=== PATIENT | female | born 1950 | race Caucasian/White ===

== ENCOUNTER 2022-09-24 21:11 | Inpatient (IN) | payer MEDICARE, OTHER ==
[~2022-09-24] VITALS: Ht 175.3 cm; Wt 70.0 kg
[2022-09-24 22:14] LABS: BASO% 0.3 % (0-3); EOS% 0.6 % (0-8); HEMATOCRIT 41.2 % (37.0-47.0); HEMOGLOBIN 13.5 g/dl (12.0-16.0); IMMATURE GRANULOCYTES 0.2 % (0.0-5.0); LYMPH% 7.5 % (15-41); MEAN CELL VOLUME 83.9 fL CALC (80.0-100.0); MEAN CORPUSCULAR HGB 27.5 pG CALC (26.0-32.0); MEAN CORPUSCULAR HGB CONC 32.8 g/dL CAL (32.0-36.0); NEUT# 20.34 thou/uL (2.00-7.15); NEUT% 83.4 % (42-76); RED BLOOD COUNT 4.91 mill/uL (4.20-5.60); RED CELL DISTRI WIDTH 13.5 % (11.5-15.5)
[2022-09-24 22:14] LABS: URINE BILIRUBIN - DIPSTICK NEGATIVE (NEGATIVE); URINE BLOOD DIPSTICK TRACE-INTACT (NEGATIVE); URINE COLOR YELLOW; URINE GLUCOSE - DIPSTICK NEGATIVE (NEGATIVE); URINE KETONE NEGATIVE (NEGATIVE); URINE LEUK ESTERASE TRACE (NEGATIVE); URINE PH 6.5 (4.5-8.0); URINE PROTEIN - DIPSTICK TRACE mg/dL (NEG-TRACE); URINE UROBILINOGEN - DIPSTICK 0.2 E.U./dL (0.2)
[2022-09-24 22:19] LABS: URINE NITRITE - DIPSTICK NEGATIVE (Negative)
[2022-09-24 22:24] LABS: ALBUMIN 4.9 g/dL (3.2-5.0); BILIRUBIN, TOTAL 0.8 mg/dL (0.02-1.3); CREATININE 1.1 mg/dL (0.5-1.0); POTASSIUM 4.2 mmol/l (3.5-5.1); TOTAL PROTEIN 7.9 g/dL (6.3-8.2)
[2022-09-25] VITALS (9 sets, daily range): BP systolic 92–131; BP diastolic 55–71
[2022-09-26] VITALS (13 sets, daily range): BP systolic 103–134; BP diastolic 46–97
[2022-09-26 05:40] LABS: BASO% 0.2 % (0-3); EOS% 0.1 % (0-8); HEMATOCRIT 35.4 % (37.0-47.0); HEMOGLOBIN 11.6 g/dl (12.0-16.0); LYMPH% 8.2 % (15-41); MEAN CELL VOLUME 84.7 fL CALC (80.0-100.0); MEAN CORPUSCULAR HGB 27.8 pG CALC (26.0-32.0); MEAN CORPUSCULAR HGB CONC 32.8 g/dL CAL (32.0-36.0); MONO% 14.3 % (2-13); NEUT# 13.93 thou/uL (2.00-7.15); NEUT% 76.2 % (42-76); RED BLOOD COUNT 4.18 mill/uL (4.20-5.60)
[2022-09-26 06:02] LABS: ALKALINE PHOSPHATASE 49 u/l (38-126); ANION GAP 9 (6-22 (CALC)); BILIRUBIN, TOTAL 0.8 mg/dL (0.02-1.3); BUN 17 mg/dL (8-23); BUN/CREATININE RATIO 17 (12-20 (CALC)); CARBON DIOXIDE 25 mmol/l (22-30); CHLORIDE 107 mmol/l (95-108); GFR FOR AFR.AMER. > 60 ML/MIN (>=60 (CALC)); GFR OTHER RACES 55 ML/MIN (>=60 (CALC)); POTASSIUM 4.2 mmol/l (3.5-5.1); SGOT/AST 20 u/l (9-36); SODIUM 137 mmol/l (137-146)
[2022-09-26 06:05] LABS: ALBUMIN 3.5 g/dL (3.2-5.0); TOTAL PROTEIN 5.9 g/dL (6.3-8.2)
[2022-09-27 00:19] VITALS: BP 145/78
[2022-09-27 03:29] VITALS: BP 149/75
[2022-09-27 06:50] VITALS: BP 132/74
[2022-09-27 11:30] VITALS: BP 137/77
[2022-09-27 15:29] VITALS: BP 154/65
[2022-09-27 19:28] VITALS: BP 133/68
[2022-09-28] VITALS (7 sets, daily range): BP systolic 129–160; BP diastolic 64–89
[2022-09-28 05:15] LABS: BASO% 0.6 % (0-3); EOS% 2.8 % (0-8); HEMATOCRIT 33.5 % (37.0-47.0); HEMOGLOBIN 10.9 g/dl (12.0-16.0); IMMATURE GRANULOCYTES 0.7 % (0.0-5.0); LYMPH% 16.1 % (15-41); MEAN CELL VOLUME 83.3 fL CALC (80.0-100.0); MEAN CORPUSCULAR HGB 27.1 pG CALC (26.0-32.0); MEAN CORPUSCULAR HGB CONC 32.5 g/dL CAL (32.0-36.0); MONO% 18.9 % (2-13); NEUT# 4.12 thou/uL (2.00-7.15); NEUT% 60.9 % (42-76); RED BLOOD COUNT 4.02 mill/uL (4.20-5.60); RED CELL DISTRI WIDTH 13.1 % (11.5-15.5)
[2022-09-28 05:29] LABS: BUN 9 mg/dL (8-23); BUN/CREATININE RATIO 12 (12-20 (CALC)); CARBON DIOXIDE 27 mmol/l (22-30); CHLORIDE 104 mmol/l (95-108); CREATININE 0.8 mg/dL (0.5-1.0); GFR FOR AFR.AMER. > 60 ML/MIN (>=60 (CALC)); GFR OTHER RACES > 60 ML/MIN (>=60 (CALC)); SODIUM 135 mmol/l (137-146)
[2022-09-28 05:31] LABS: ANION GAP 7 (6-22 (CALC)); POTASSIUM 3.2 mmol/l (3.5-5.1)
[2022-09-29] VITALS (7 sets, daily range): BP systolic 123–147; BP diastolic 75–81
[2022-09-29] MEDS ORDERED: AMOX/K CLAV875 M1 PO (13:34)
[2022-09-29] MEDS ORDERED: PERCOCET 5/325M1 TAB PO (13:35)
[2022-09-30 03:43] VITALS: BP 140/83
[2022-09-30 06:37] VITALS: BP 113/73
[2022-09-30] MEDS ORDERED: PERCOCET 5/325M1 TAB PO (13:23)
== END 2022-09-30 12:32 | disposition home or self-care (01) | DRG 330 ==
LOC: ED 21:11 → ED-I 09-25 02:00 → ED 09-25 02:23 → MS2 09-25 02:24 → ICU 09-25 02:24 → ED 09-25 04:12 → ED-I 09-25 04:12 → ICU 09-25 05:30 → MS2 09-26 14:14
PROVIDERS: Emergency Medicine; ADMIT Surgery; ATTEND Surgery
PROC: 0DBN0ZZ Excision of Sigmoid Colon, Open Approach (ICD-10-PCS; principal; 2022-09-25)
PROC: 0T788DZ Dilation of Bilateral Ureters with Intraluminal Device, Via Natural or Artificial Opening Endoscopic (ICD-10-PCS; 2022-09-26)
DX: K57.20 Diverticulitis of large intestine with perforation and abscess without bleeding (principal); N13.2 Hydronephrosis with renal and ureteral calculous obstruction; E21.3 Hyperparathyroidism, unspecified; Z87.442 Personal history of urinary calculi; N21.0 Calculus in bladder
CPT/HCPCS: C1769; J0131; Q9966

== ENCOUNTER 2022-10-19 08:01 | Day surgery (SDC) | payer MEDICARE, OTHER ==
[~2022-10-19] VITALS: Ht 175.3 cm; Wt 65.8 kg
[~2022-10-19 08:01] MED LIST: AMOX/K CLAV875 M1 PO; PERCOCET 5/325M1 TAB PO
[2022-10-19 11:36] VITALS: BP 146/90
== END 2022-10-19 11:02 | disposition home or self-care (01) ==
LOC: ORM 08:01
PROVIDERS: ATTEND Urology
PROC: 0TC78ZZ Extirpation of Matter from Left Ureter, Via Natural or Artificial Opening Endoscopic (ICD-10-PCS; principal; 2022-10-19)
PROC: 0TC68ZZ Extirpation of Matter from Right Ureter, Via Natural or Artificial Opening Endoscopic (ICD-10-PCS; 2022-10-19)
PROC: 0T778DZ Dilation of Left Ureter with Intraluminal Device, Via Natural or Artificial Opening Endoscopic (ICD-10-PCS; 2022-10-19)
DX: N20.1 Calculus of ureter (principal); E21.3 Hyperparathyroidism, unspecified
CPT/HCPCS: J1100; J1956